=== PATIENT | male | born 1965 | race Native Hawaiian/Other Pacific Islander ===

== ENCOUNTER 2018-01-24 15:21 | Observation (INO) | payer OTHER ==
[~2018-01-24] VITALS: Ht 185.4 cm; Wt 118.1 kg
[2018-01-24 16:58] LABS: PLATELET COUNT 243 K/uL (142-355)
[2018-01-24 17:55] LABS: POTASSIUM 3.3 mmol/L (3.6-5.2)
[2018-01-24] MEDS ORDERED: METO25TA4 PO (18:02)
[2018-01-24] MEDS ORDERED: ZANTAC300 MG PO (18:03)
[2018-01-24] MEDS ORDERED: MIRALAX3350 N1 PO (18:04)
[2018-01-24] MEDS ORDERED: CYCL10TA35 PO (18:04)
[2018-01-24] MEDS ORDERED: ASA LOW DOSE81 MG PO (18:05)
[2018-01-24] MEDS ORDERED: HYDROCHLOROT50 MG PO (18:05)
[2018-01-24] MEDS ORDERED: LISI20TA11 PO (18:06)
[2018-01-24] MEDS ORDERED: PREDNISONE1 MG PO (18:08)
[2018-01-24 18:21] VITALS: BP 92/63; TEMP 98.6; Ht 185.4 cm; Wt 118.1 kg
[2018-01-24 20:22] VITALS: BP 106/60; TEMP 98.7
[2018-01-25] VITALS: BP 96/59; TEMP 98.4
[2018-01-25 04:00] VITALS: BP 111/68; TEMP 98
[2018-01-25 08:00] VITALS: BP 111/70; TEMP 97.8
[2018-01-25 12:00] VITALS: BP 118/67; TEMP 98
[2018-01-25 14:08] LABS: POTASSIUM 3.7 mmol/L (3.6-5.2)
--- NOTE | 2018-01-25 15:00 | NUR ---
IV DC WITH CANNULA TIP INTACT. PT TOLERATED WELL.
== END 2018-01-25 15:14 | disposition home or self-care (01) ==
LOC: MED/SURG 15:21
PROVIDERS: ADMIT Family Medicine
DX: I95.89 Other hypotension (principal); E86.0 Dehydration; R11.2 Nausea with vomiting, unspecified; A08.8 Other specified intestinal infections; I16.0 Hypertensive urgency; I25.10 Atherosclerotic heart disease of native coronary artery without angina pectoris; R10.84 Generalized abdominal pain; N28.9 Disorder of kidney and ureter, unspecified; E87.6 Hypokalemia
CPT/HCPCS: 36415; 80048; 80053; 82550; 84439; 84443; 84484; 85027; 87040; 93005; 96365; 96366; 96374; 96375; 99220; G0378; G0379; J3490